=== PATIENT | male | born 1965 | race Two or more races ===

== ENCOUNTER 2019-09-24 08:52 | Inpatient (IN) | payer OTHER ==
[2019-09-22 14:36] LABS: Basophils # (auto) 0 uL; Basophils % (auto) 0.4 % (0.0-2.0); Eosinophils # (auto) 0.2 uL; Hematocrit 39.9 % (41.0-53.0); Hemoglobin 13.3 g/dL (13.5-17.5); Lymphocytes # (auto) 2.5 uL; Lymphocytes % (auto) 35.9 % (10.0-50.0); Mean Corpuscular Hemoglobin 28.4 pg (28.0-32.0); Mean Corpuscular Hgb Conc. 33.5 g/dL (32.0-36.0); Mean Corpuscular Volume 84.9 fL (80.0-100.0); Monocytes # (auto) 0.6 uL; Monocytes % (auto) 7.9 % (0.0-12.0); Neutrophils # (auto) 3.7 uL; Neutrophils % (auto) 52.8 % (37.0-80.0); Nucleated Red Blood Cells % 0.1 %; Platelet Count (auto) 200 10^3/uL (140-450); Red Cell Distribution Width 13.4 % (11.8-14.3)
[2019-09-22 14:48] LABS: Urine Bacteria NONE SEEN /hpf (None Seen); Urine Blood TRACE /uL (Negative); Urine Mucus FEW (None Seen); Urine Specific Gravity 1.018 (1.001-1.035); Urine WBC 1 /hpf (0 - 3)
[2019-09-22 14:59] LABS: Partial Thromboplastin Time 26.8 sec (23.64-32.05)
[2019-09-22 15:01] LABS: Albumin 3.9 g/dL (3.4-5.0); Calcium 9.5 mg/dL (8.5-10.1); Potassium 4.8 mmol/L (3.5-5.1)
[2019-09-22 15:04] LABS: BUN/Creatinine Ratio 22.8; Bilirubin, Total 0.6 mg/dL (0.2-1.0); Total Protein 8.9 g/dL (6.4-8.2)
[~2019-09-24] VITALS: Ht 180.3 cm; Wt 115.2 kg
[~2019-09-24 08:52] MED LIST: CETI10TA80 PO; INSU1INJ19 SC; LISI-285 PO; SIMV-13 PO
[2019-09-24] MEDS ORDERED: ceFAZolin 1GM/50ML 50 ML IV ONE (11:42)
[2019-09-24] MEDS ORDERED: SUCCINYLCHOLINE CHLORIDE 20 MG/ML 10ML VIAL IV ONE (12:10)
[2019-09-24] MEDS ORDERED: ROPIVACAINE 0.5% (5MG/ML) 20ML AMPULE IJ ONE (12:17)
[2019-09-24] MEDS ORDERED: ACCU-CHEK COMFORT CURVE STRIP VI ONE (12:45)
[2019-09-24] MEDS ORDERED: NALOXONE HCL 0.4 MG/ML VIAL IV PRN (12:45)
[2019-09-24] MEDS ORDERED: HYDROmorphone HCL 2 MG/ML VL IV PRN ×2 (12:45)
[2019-09-24] MEDS ORDERED: MIDAZOLAM HCL 1MG/1ML-2 ML VIAL ONE (12:45)
[2019-09-24] MEDS ORDERED: ROCURONIUM 10MG/ML 10ML VIAL IV ONE (12:45)
[2019-09-24] MEDS ORDERED: ONDANSETRON HCL 4 MG/2 ML VIAL IV PRN ×2 (12:45→16:00)
[2019-09-24] MEDS ORDERED: PROPOFOL 10 MG/ML 20 ML IV ONE (12:46)
[2019-09-24] MEDS ORDERED: LIDOCAINE 2% (LOCAL ANESTH.) PF 5ml SDV ONE (12:47)
[2019-09-24] MEDS ORDERED: METOCLOPRAMIDE HCL 5MG/ml INJ 2ml VIAL ONE (12:51)
[2019-09-24] MEDS ORDERED: fentaNYL CITRATE 100 MCG/2 ML VL ONE (13:01)
[2019-09-24] MEDS ORDERED: NEOSTIGMINE 1 MG/ML INJ (10mg/10ML VIAL) ONE (13:10)
[2019-09-24] MEDS ORDERED: GLYCOPYRROLATE 0.2 MG/ML 1ML VIAL ONE (13:10)
[2019-09-24] MEDS ORDERED: ePHEDrine SULFATE 50 MG/ML AMP ONE (13:12)
[2019-09-24] MEDS ORDERED: SODIUM CHLORIDE LOCK 10 ML ONE (13:12)
[2019-09-24] MEDS ORDERED: MORPHINE SULF INJ 2 MG/ML SYRINGE 1ML IV PRN ×2 (15:45→16:00)
[2019-09-24] MEDS ORDERED: NITROGLYCERIN 0.4 MG SL TAB SL PRN (15:45)
[2019-09-24] MEDS ORDERED: METOPROLOL TARTRATE 25 MG TAB PO ONE (15:45)
[2019-09-24] MEDS: LABETALOL HCL 5 MG/ML ML 20ML VIAL IV PRN (15:50)
[2019-09-24] MEDS ORDERED: ACETAMINOPHEN 500 MG TAB PO PRN (16:00)
[2019-09-24] MEDS ORDERED: DOCUSATE SOD 100 MG CAP PO PRN (16:00)
[2019-09-24] MEDS ORDERED: HYDROcodone-ACET 5/325MG TAB PO PRN (16:00)
[2019-09-24] MEDS: SODIUM CHLORIDE 0.9% 1,000 ML IV SCH (16:01)
--- NOTE | 2019-09-24 16:51 | NUR ---
Telemetry admit from [facility] BLAIR [facility] admitted to Telemetry unit after SBAR received. Patient oriented to SUSHILA REED RN primary RN, unit, 219B, and unit policies regarding patient care and visiting hours. Patient now on continuous telemetry monitoring, tele box # 31 and telemetry reading on arrival to unit is 109 Patient placed on bedside oxygen, weighed by bedscale and encouraged to call if they need something. All questions and concerns addressed, patient verbalized understanding.
[2019-09-24 17:22] LABS: Anion Gap 8 (5-15); Blood Urea Nitrogen 21 mg/dL (7-18); Calcium 8.7 mg/dL (8.5-10.1); Carbon Dioxide 27 mmol/L (21-32); Chloride 104 mmol/L (98-107); Glucose 116 mg/dL (74-106); Potassium 4.1 mmol/L (3.5-5.1); Sodium 139 mmol/L (136-145)
[2019-09-24 17:26] LABS: BUN/Creatinine Ratio 16.2; GFR African American 75 mL/min; GFR Non-African American 62 mL/min
[2019-09-24 17:50] VITALS: BP 147/81
[2019-09-24 18:27] VITALS: BP 147/81
--- NOTE | 2019-09-24 19:31 | NUR ---
Closing shift note Care endorsed to therapy manager rn
--- NOTE | 2019-09-24 20:00 | NUR ---
RECEIVE IN BED NO VOICED COMPLAINTS
[2019-09-24] MEDS: METOPROLOL TARTRATE 25 MG TAB PO SCH (21:51)
[2019-09-24 22:00] VITALS: BP 157/90
[2019-09-24] MEDS ORDERED: ATORVASTATIN 20 MG TAB PO SCH (22:00)
[2019-09-25] MEDS: SODIUM CHLORIDE 0.9% 1,000 ML IV SCH ×2 (02:30→09:36)
[2019-09-25 05:00] VITALS: BP 143/85
[2019-09-25 06:38] LABS: Basophils # (auto) 0 uL; Basophils % (auto) 0.3 % (0.0-2.0); Eosinophils # (auto) 0.1 uL; Eosinophils % (auto) 1.7 % (0.0-7.0); Hematocrit 35.3 % (41.0-53.0); Hemoglobin 12.2 g/dL (13.5-17.5); Lymphocytes # (auto) 1.5 uL; Lymphocytes % (auto) 21.4 % (10.0-50.0); Mean Corpuscular Hemoglobin 28.9 pg (28.0-32.0); Mean Corpuscular Hgb Conc. 34.4 g/dL (32.0-36.0); Mean Corpuscular Volume 83.9 fL (80.0-100.0); Monocytes # (auto) 0.6 uL; Monocytes % (auto) 7.8 % (0.0-12.0); Neutrophils # (auto) 4.9 uL; Neutrophils % (auto) 68.8 % (37.0-80.0); Nucleated Red Blood Cells % 0.1 %; Platelet Count (auto) 186 10^3/uL (140-450); Red Blood Cells 4.21 10^6/uL (4.5-5.90); Red Cell Distribution Width 13.4 % (11.8-14.3); White Blood Cell 7.1 10^3/uL (4.4-10.8)
[2019-09-25 06:50] LABS: Calcium 8.4 mg/dL (8.5-10.1); Potassium 4.3 mmol/L (3.5-5.1)
--- NOTE | 2019-09-25 08:00 | NUR ---
Patient in bed, awake, oriented x4. Right foot on post op shoe, left post op shoe at bedside.
[2019-09-25 09:21] VITALS: BP 133/81
[2019-09-25] MEDS: METOPROLOL TARTRATE 25 MG TAB PO SCH (09:34)
--- NOTE | 2019-09-25 09:42 | NUR ---
Patient stated his pain starting to come up, requested Tylenol, refused Hines. Tylenol 500 mg PO given for mild pain.
[2019-09-25] MEDS ORDERED: INSULIN LANTUS (GLARGINE) 1 /0.01ml (100units/ml) SC SCH (10:00)
[2019-09-25] MEDS ORDERED: FAMOTIDINE 20 MG TAB PO SCH (10:00)
--- NOTE | 2019-09-25 12:20 | NUR ---
Dr. Mejia at bedside. MD to discharge the patient today. Patient to follow up with Dr. Alex for Podiatry.
[2019-09-25] MEDS: LABETALOL HCL 5 MG/ML ML 20ML VIAL IV PRN (12:32)
--- NOTE | 2019-09-25 12:32 | NUR ---
BP = 170/89, Heart Rate = 90. Labetalol Inj given for SBP>150 as ordered.
[2019-09-25 13:00] VITALS: BP 170/89
[2019-09-25 13:15] VITALS: BP 170/89
--- NOTE | 2019-09-25 14:55 | NUR ---
Called [facility] [employer]. truck driver said he's already at ER parking area. Informed the patient.
--- NOTE | 2019-09-25 15:05 | NUR ---
Discharge instructions given as ordered. Encourage to follow up with PMD as instructed. All questions and concerns addressed. Patient verbalized understanding. Medication reconciliation form completed and copy given to patient. IV removed with catheter intact, pressure dressing applied. Telemetry unit returned to ICU. Patient taken to vehicle/[facility] [employer] via wheelchair with all personal belongings, accompanied by staff. No distress noted at time of departure.
[2019-09-26] MEDS ORDERED: ASPirin 81 mg TAB PO SCH (10:00)
[2019-09-26] MEDS ORDERED: LISINOPRIL 10 MG TAB PO SCH (10:00)
== END 2019-09-25 15:05 | disposition home or self-care (01) | DRG 983 ==
LOC: SUR 08:52 → TELE-CENTR 17:08
PROVIDERS: ADMIT Podiatrist Foot & Ankle Surgery; ATTEND Internal Medicine
PROC: 0LS Tendons, Reposition (ICD-10-PCS; principal; 2019-09-24 12:46)
PROC: 0L8V0ZZ Division of Right Foot Tendon, Open Approach (ICD-10-PCS; 2019-09-24 12:46)
DX: R00.0 Tachycardia, unspecified (principal); E11.621 Type 2 diabetes mellitus with foot ulcer; L97.519 Non-pressure chronic ulcer of other part of right foot with unspecified severity; E66.9 Obesity, unspecified; R79.89 Other specified abnormal findings of blood chemistry; E78.5 Hyperlipidemia, unspecified; E11.22 Type 2 diabetes mellitus with diabetic chronic kidney disease; I12.9 Hypertensive chronic kidney disease with stage 1 through stage 4 chronic kidney disease, or unspecified chronic kidney disease; N18.3 Chronic kidney disease, stage 3 (moderate); Z79.4 Long term (current) use of insulin; Z82.49 Family history of ischemic heart disease and other diseases of the circulatory system; Z68.35 Body mass index [BMI] 35.0-35.9, adult
CPT/HCPCS: 36415; 80048; 80053; 80061; 81001; 82962; 83036; 83735; 84484; 85025; 85610; 85730; 93306; G0378; J0330; J0690; J1815; J2001; J2250; J2704